=== PATIENT | female | born 1975 | race Hispanic/Latino ===

== ENCOUNTER 2017-09-09 16:26 | Emergency (ER) | payer SELFPAY ==
[2017-09-09 17:15] LABS: APPEARANCE,URINE CLOUDY (CLEAR); BILIRUBIN,URINE NEGATIVE (NEGATIVE); COLOR,URINE YELLOW (YELLOW); GLUCOSE, URINE (UA) NEGATIVE (NEGATIVE); KETONES,URINE NEGATIVE (NEGATIVE); LEUKOCYTE ESTERASE ,URINE TRACE (NEGATIVE); NITRATE,URINE POSITIVE (NEGATIVE); OCCULT BLOOD,URINE NEGATIVE (NEGATIVE); PROTEIN,URINE NEGATIVE (NEGATIVE); UROBILINOGEN,URINE 0.2 mg/dL (0.2-1.0)
[2017-09-09 17:19] LABS: HCG,QUAL RESULT NEGATIVE (NEGATIVE)
[2017-09-09 17:21] LABS: BACTERIA,URINE Moderate /HPF (None Seen); RBC,URINE 0-1 /HPF (0-1)
[2017-09-09 17:23] LABS: AMORPHOUS SEDIMENT,UR Few /LPF (None Seen); SQUAMOUS EPITHELIAL CELL,UR Few /HPF (0-2)
[2017-09-09] MEDS ORDERED: CEFTRIAXONE SODIUM 1 GM ONE (17:36)
[2017-09-09] MEDS ORDERED: KETOROLAC TROMETHAMINE 30MG/ML ONE (17:36)
[2017-09-09] MEDS ORDERED: ORPHENADRINE CITRATE 30 MG/ML ML ONE (17:36)
[2017-09-09] MEDS ORDERED: SODIUM CHLORIDE 0.9% 1000ML 1,000 ML IV ONE (17:36)
[2017-09-09] MEDS ORDERED: FAMOTIDINE 20MG TAB 20 MG TAB ONE (17:59)
== END 2017-09-09 19:12 | disposition home or self-care (01) ==
LOC: EDH 16:26
DX: N39.0 Urinary tract infection, site not specified (principal); M54.5 Low back pain; M62.830 Muscle spasm of back
CPT/HCPCS: 81001; 81025; 96374; 96375; 99284; J0696; J1885; J2360; J7030

== ENCOUNTER 2020-09-11 15:08 | Emergency (ER) | payer SELFPAY ==
[2020-09-11 15:42] LABS: APPEARANCE,URINE Clear (CLEAR); BILIRUBIN,URINE Negative (NEGATIVE); COLOR,URINE Yellow (YELLOW); GLUCOSE, URINE (UA) Negative (NEGATIVE); KETONES,URINE Negative (NEGATIVE); LEUKOCYTE ESTERASE ,URINE Negative (NEGATIVE); NITRATE,URINE Negative (NEGATIVE); OCCULT BLOOD,URINE Moderate (NEGATIVE); PROTEIN,URINE Negative (NEGATIVE)
[2020-09-11] MEDS ORDERED: LIDOCAINE HCL 2% VISCOUS 15 ML UDCUP ONE (15:42)
[2020-09-11] MEDS ORDERED: MAG/ALUM/SIMETH 30 ML UDCUP ONE (15:42)
[2020-09-11] MEDS ORDERED: FAMOTIDINE 20MG TAB ONE (15:42)
[2020-09-11 15:45] LABS: HCG,QUAL RESULT NEGATIVE (NEGATIVE)
[2020-09-11 15:48] LABS: BASOPHILS % (AUTO) 0.4 % (0.0-5.0); EOSINOPHILS % (AUTO) 0.9 % (0.0-8.0); HEMATOCRIT 39.3 % (36-48); LYMPHOCYTES % (AUTO) 30.1 % (21.0-51.0); MEAN CORPUSCULAR HEMOGLOBIN 30.8 pg (27.0-33.0); MEAN CORPUSCULAR HGB CONC 34.6 g/dL (32.0-36.0); MEAN CORPUSCULAR VOLUME 89.1 fL (79-99); MONOCYTES % (AUTO) 7.9 % (3.0-13.0); NEUTROPHILS % (AUTO) 60.6 % (40.0-77.0); PLATELET COUNT (AUTO) 258 K/uL (130-400); RED BLOOD CELL COUNT(AUTO) 4.41 MIL/uL (4.00-5.50); RED CELL DISTRIBUTION WIDTH 12.5 % (11.0-15.5); WHITE BLOOD COUNT (AUTO) 6.9 K/uL (4.8-10.8)
[2020-09-11 15:56] LABS: BACTERIA,URINE Rare /HPF (None Seen); RBC,URINE 0-1 /HPF (0-1); SQUAMOUS EPITHELIAL CELL,UR 0-2 /HPF (0-2); WBC,URINE 0-1 /HPF (0-1)
[2020-09-11 16:47] LABS: CREATININE 1.2 mg/dL (0.5-1.5); POTASSIUM 3.2 mmol/L (3.5-5.1)
[2020-09-11 16:51] LABS: ALBUMIN 3.7 g/dL (3.5-5.0); BILIRUBIN,TOTAL 0.8 mg/dL (0.2-1.0); TOTAL PROTEIN, SERUM 7.5 g/dL (6.0-8.3)
[2020-09-11] MEDS ORDERED: POTASSIUM BICARB/CIT AC 25 MEQ TABLET.EFF ONE (17:09)
[2020-09-11] MEDS ORDERED: DICYCLOMINE 20MG (10MG/ML) AMP IM ONE (17:09)
== END 2020-09-11 18:08 ==
LOC: EDH 15:08
DX: K29.70 Gastritis, unspecified, without bleeding (principal); E87.6 Hypokalemia; R07.89 Other chest pain; Z98.890 Other specified postprocedural states
CPT/HCPCS: 36415; 71045; 80053; 81001; 81025; 83690; 84484 ×2; 85025; 93005; 96372; 99285; J0500